=== PATIENT | female | born 1990 | race Caucasian/White ===

== ENCOUNTER 2017-11-21 01:01 | Emergency (ER) | payer OTHER ==
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
[2017-11-21] MEDS ORDERED: PREDNISONE50 M1 PO (02:28)
[2017-11-21] MEDS ORDERED: VENTOLIN HFA18 GM INH (02:28)
[2017-11-21 03:02] VITALS: BP 123/66
== END 2017-11-21 04:09 ==
LOC: ERH 01:01
DX: J45.901 Unspecified asthma with (acute) exacerbation (principal)
CPT/HCPCS: 1426; 80307; 81025; 93005; 93010; 94644; J1100